=== PATIENT | male | born 1950 | race Caucasian/White ===

== ENCOUNTER 2017-12-19 14:14 | Observation (INO) | payer OTHER ==
[2017-12-19 15:14] LABS: ADD MAN DIFF? NO
[2017-12-19 15:20] LABS: BASOPHIL # 0.1 10^3/ul (0.0-0.1); BASOPHILS % 0.8 % (0.0-2.0); EOSINOPHILS # 0.1 10^3/ul (0.0-0.5); EOSINOPHILS % 1.2 % (0.0-7.0); HEMOGLOBIN 16.6 g/dl (14.0-18.0); LYMPHOCYTES # 1.9 10^3/ul (0.8-2.9); LYMPHOCYTES % 25.1 % (15.0-51.0); MEAN CORPUSCULAR HEMOGLOBIN 29.9 pg (29.0-33.0); MEAN CORPUSCULAR HGB CONC 34.6 g/dl (32.0-37.0); MEAN CORPUSCULAR VOLUME 86.5 fl (82.0-101.0); MEAN PLATELET VOLUME 11.1 fl (7.4-10.4); MONOCYTE # 0.7 10^3/ul (0.3-0.9); MONOCYTES % 9.6 % (0.0-11.0); NEUTROPHIL # 4.8 10^3/ul (1.6-7.5); NEUTROPHILS % 63.2 % (39.0-77.0); PLATELET COUNT 198 10^3/UL (140-415); RED BLOOD COUNT 5.55 10^6/ul (4.70-6.10); RED CELL DISTRIBUTION WIDTH 13.1 % (11.5-14.5)
[2017-12-19 15:20] LABS: WHITE BLOOD COUNT 7.6 10^3/ul (4.8-10.8)
[2017-12-19 15:40] LABS: ANION GAP 15 (8-16); BLOOD UREA NITROGEN 14 mg/dl (7-20); CALCIUM 9.7 mg/dl (8.4-10.2); CARBON DIOXIDE 26 mmol/L (21-31); CHLORIDE 102 mmol/L (97-110); CREATININE 1.05 mg/dl (0.61-1.24); GLUCOSE 102 mg/dl (70-220); POTASSIUM 4.7 mmol/L (3.5-5.1); SODIUM 138 mmol/L (135-144)
[2017-12-19 15:52] LABS: B-TYPE NATRIURETIC PEPTIDE 377 PG/ML (0-125); TROPONIN-I < 0.010 ng/ml (0.000-0.120)
[2017-12-19 16:32] LABS: AMPHETAMINE/METHAMPHETAMINE Negative (NEGATIVE); BARBITURATES Negative (NEGATIVE); BENZODIAZEPINES Negative (NEGATIVE); CANNABINOIDS Negative (NEGATIVE); COCAINE Negative (NEGATIVE); OPIATES Negative (NEGATIVE)
[2017-12-19] MEDS ORDERED: ACETAMINOPHEN 325 MG TAB PO (17:30)
[2017-12-19] MEDS ORDERED: NACL 0.9% 3 ML SYG IV (17:30)
[2017-12-19] MEDS ORDERED: hydrALAzine 20 MG INJ IV (17:30)
[2017-12-19] MEDS ORDERED: HYDROCODONE/APAP (5/325) TAB PO (17:30)
[2017-12-19] MEDS ORDERED: morphine 2 MG INJ IV (17:30)
[2017-12-19] MEDS: ENOXAPARIN 80 MG/0.8 ML SYG SC (18:31)
[2017-12-19 19:03] LABS: HEMOGLOBIN A1C 5.5 % (0-5.9)
[2017-12-19 21:31] LABS: CREATINE KINASE 163 IU/L (23-200)
[2017-12-19 21:44] LABS: CK INDEX 1.1; CK-MB 1.82 ng/ml (0.0-2.4); TROPONIN-I < 0.010 ng/ml (0.000-0.120)
[2017-12-20 03:23] LABS: CREATINE KINASE 138 IU/L (23-200)
[2017-12-20 03:35] LABS: CK INDEX 1.1; CK-MB 1.56 ng/ml (0.0-2.4); TROPONIN-I < 0.010 ng/ml (0.000-0.120)
[2017-12-20 06:06] LABS: ADD MAN DIFF? NO
[2017-12-20 06:18] LABS: WHITE BLOOD COUNT 6.4 10^3/ul (4.8-10.8)
[2017-12-20 06:18] LABS: BASOPHIL # 0.1 10^3/ul (0.0-0.1); BASOPHILS % 0.8 % (0.0-2.0); EOSINOPHILS # 0.1 10^3/ul (0.0-0.5); EOSINOPHILS % 1.9 % (0.0-7.0); HEMATOCRIT 48.7 % (42.0-52.0); HEMOGLOBIN 16.9 g/dl (14.0-18.0); LYMPHOCYTES # 2.4 10^3/ul (0.8-2.9); LYMPHOCYTES % 37.6 % (15.0-51.0); MEAN CORPUSCULAR HEMOGLOBIN 30.8 pg (29.0-33.0); MEAN CORPUSCULAR HGB CONC 34.7 g/dl (32.0-37.0); MEAN CORPUSCULAR VOLUME 88.9 fl (82.0-101.0); MEAN PLATELET VOLUME 11.1 fl (7.4-10.4); MONOCYTE # 0.6 10^3/ul (0.3-0.9); MONOCYTES % 9.1 % (0.0-11.0); NEUTROPHIL # 3.2 10^3/ul (1.6-7.5); NEUTROPHILS % 50.4 % (39.0-77.0); PLATELET COUNT 189 10^3/UL (140-415); RED BLOOD COUNT 5.48 10^6/ul (4.70-6.10); RED CELL DISTRIBUTION WIDTH 12.9 % (11.5-14.5)
[2017-12-20 07:09] LABS: CREATINE KINASE 123 IU/L (23-200)
[2017-12-20 07:21] LABS: CK INDEX 1.3; CK-MB 1.61 ng/ml (0.0-2.4); TROPONIN-I 0.014 ng/ml (0.000-0.120)
[2017-12-20 07:42] LABS: CHOL/HDL RATIO 7.4 RATIO; HDL CHOLESTEROL 26 mg/dl (30-78); LDL CHOLESTEROL,CALCULATED 120 mg/dl; TRIGLYCERIDES 233 mg/dl (0-149)
[2017-12-20 07:42] LABS: CHOLESTEROL 193 mg/dl (100-200)
[2017-12-20 08:07] LABS: ALANINE AMINOTRANSFERASE 8 IU/L (13-69); ALBUMIN/GLOBULIN RATIO 1.29; ALKALINE PHOSPHATASE 67 IU/L (42-121); ANION GAP 15 (8-16); ASPARTATE AMINO TRANSFERASE 17 IU/L (15-46); BILIRUBIN,INDIRECT 0.4 mg/dl (0-1.1); BILIRUBIN,TOTAL 0.4 mg/dl (0.2-1.3); BLOOD UREA NITROGEN 16 mg/dl (7-20); CARBON DIOXIDE 26 mmol/L (21-31); CHLORIDE 103 mmol/L (97-110); CREATININE 1.09 mg/dl (0.61-1.24); GLUCOSE 98 mg/dl (70-220); POTASSIUM 4.8 mmol/L (3.5-5.1); SODIUM 139 mmol/L (135-144); TOTAL PROTEIN 7.1 g/dl (6.1-8.1)
[2017-12-20 08:17] LABS: B-TYPE NATRIURETIC PEPTIDE 386 PG/ML (0-125)
[2017-12-20] MEDS ORDERED: ENOXAPARIN 40 MG/0.4 ML SYG SC (09:00)
[2017-12-20] MEDS: ENOXAPARIN 80 MG/0.8 ML SYG SC (09:00)
[2017-12-20 09:12] LABS: MAGNESIUM 2.3 mg/dl (1.7-2.5)
[2017-12-20 09:12] LABS: PHOSPHORUS 5.2 mg/dl (2.5-4.9)
[2017-12-20] MEDS: ASPIRIN 81 MG TAB PO (09:31)
[2017-12-20 13:32] LABS: FREE T4 (FREE THYROXINE) 0.99 ng/dl (0.78-2.44)
[2017-12-20 13:33] LABS: FREE T4 (FREE THYROXINE) 1.14 ng/dl (0.78-2.44)
[2017-12-20 13:45] LABS: THYROID STIMULATING HORMONE 0.811 MIU/L (0.465-4.680)
[2017-12-20] MEDS ORDERED: ATORVASTATIN 40 MG TAB PO (21:00)
== END 2017-12-20 13:26 | disposition home or self-care (01) ==
LOC: E/R 14:14 → 6WM 16:11
DX: R07.89 Other chest pain (principal); I25.10 Atherosclerotic heart disease of native coronary artery without angina pectoris; E78.5 Hyperlipidemia, unspecified; I50.9 Heart failure, unspecified; F99 Mental disorder, not otherwise specified; I25.2 Old myocardial infarction; Z91.14 Patient's other noncompliance with medication regimen; Z53.29 Procedure and treatment not carried out because of patient's decision for other reasons; Z98.61 Coronary angioplasty status; Z59.0 Homelessness
CPT/HCPCS: 36415; 71045; 80048; 80053; 80061; 80307; 82550; 82553; 83036; 83735; 83880; 84100; 84439; 84443; 84484; 85025; 87081; 93005; 93306; 96372; 99217; 99285-25; G0378